=== PATIENT | female | born 1980 | race Caucasian/White ===

== ENCOUNTER 2021-02-16 23:07 | Emergency (ER) | payer OTHER ==
[~2021-02-16] VITALS: Ht 162.6 cm; Wt 68.0 kg
[2021-02-16 23:16] VITALS: BP 137/91
[2021-02-16] MEDS ORDERED: FLEXERIL PO (23:20)
[2021-02-16] MEDS ORDERED: MEDROL4 M1 PO (23:20)
[2021-02-16] MEDS ORDERED: DOXEPIN HCL100 MG PO (23:21)
== END 2021-02-17 00:49 | disposition left against medical advice (07) ==
LOC: M.ERS 23:07
DX: Z53.21 Procedure and treatment not carried out due to patient leaving prior to being seen by health care provider (principal)